=== PATIENT | female | born 1955 | race Caucasian/White ===

== ENCOUNTER 2020-07-02 18:46 | Observation (INO) | payer MEDICARE, OTHER ==
--- NOTE | 2020-07-02 19:18 | ED Physician Documentation ---
PD HPI CHEST PAIN - Stated complaint Stated Complaint: IRREGULAR HEART BEAT - Chief complaint Chief Complaint: Cardiac - History obtained from History obtained from: Patient - Additional information Additional information: 64-year-old woman with history of remote breast cancer in remission after chemo. She has had an intermittent problem in the past where she gets a fast heartbeat, feels somewhat fatigued and hyper aware of her chest. Is not painful. She had this several years ago and had a work-up including what sounds like a gated CT, echo, stress test and they were all negative. She has been fine for a few years until April. Had it for a day in April, then was okay up until a few nights ago. Had a similar episode for several hours. Now has been back in it for about an hour. She does drink coffee but not in the evenings. No change in her recent caffeine intake. No other stimulants. She is on no meds. No history of DVT or PE. No calf pain or pedal edema. She has had urinary frequency today. Review of Systems Ten Systems: 10 systems reviewed and negative Constitutional: reports: Reviewed and negative Cardiac: reports: Palpitations, Reviewed and negative Respiratory: denies: Dyspnea, Cough PD PAST MEDICAL HISTORY - Past Medical History Past Medical History: No - Past Surgical History Past Surgical History: No - Present Medications Home Medications: Ambulatory Orders Medication Instructions Recorded Confirmed No Known Home Medications 07/02/20 07/02/20 - Allergies Allergies/Adverse Reactions: Allergies Allergy/AdvReac Type Severity Reaction Status Date / Time No Known Drug Allergies Allergy Verified 07/02/20 18:55 - Social History Does the pt smoke?: No Smoking Status: Never smoker Does the pt drink ETOH?: Yes Does the pt have substance abuse?: No - Immunizations Immunizations are current?: Yes - POLST Patient has POLST: No PD ED PE NORMAL - Vitals Vital signs reviewed: Yes - General General: Alert and oriented X 3, No acute distress - HEENT HEENT: PERRL, EOMI - Neck Neck: Supple, no meningeal sign, No bony TTP - Cardiac Cardiac: No murmur, Other (Rapid, regular, no murmur) - Respiratory Respiratory: No respiratory distress, Clear bilaterally - Abdomen Abdomen: Non tender - Extremities Extremities: No edema, No calf tenderness / cord - Neuro Neuro: Alert and oriented X 3, Normal speech Results - Vitals Vitals: Vital Signs - 24 hr 07/02/20 07/02/20 07/02/20 18:55 19:00 19:30 Temperature 37.2 C 37.2 C Heart Rate 120 H 120 H 111 H Respiratory 17 17 16 Rate Blood Pressure 188/89 H 188/89 H 187/98 H O2 Saturation 100 100 98 07/02/20 07/02/20 07/02/20 20:00 20:30 21:00 Temperature 36.6 C Heart Rate 84 84 79 Respiratory 14 16 13 Rate Blood Pressure 200/96 H 175/86 H 170/80 H O2 Saturation 100 99 98 07/02/20 21:30 Temperature Heart Rate 77 Respiratory 12 Rate Blood Pressure 169/86 H O2 Saturation 97 Oxygen O2 Source Room air - EKG (time done) 1852 Rate: Rate (enter#) (121) Rhythm: Sinus tachycardia [place]: Normal Intervals: Normal DE QRS: Normal Ischemia: Non specific changes (Borderline lateral ST depression) Computer interpretation: Agree with computer - Labs Labs: Laboratory Tests 07/02/20 07/02/20 07/02/20 19:20 19:35 19:35 WBC 7.6 RBC 4.57 Hgb 14.1 Hct 41.3 MCV 90.4 MCH 30.9 MCHC 34.1 RDW 13.0 Plt Count 257 MPV 9.5 Neut # (Auto) 4.9 Lymph # (Auto) 2.1 Mckean # (Auto) 0.5 Eos # (Auto) 0.1 Baso # (Auto) 0.0 Absolute Nucleated RBC 0.00 Nucleated RBC % 0.0 D-Dimer 230.8 Sodium Potassium Chloride Carbon Dioxide Anion Gap BUN Creatinine Estimated GFR (MDRD) Glucose Calcium Total Bilirubin AST ALT Alkaline Phosphatase Troponin I High Sens Total Protein Albumin Globulin Albumin/Globulin Ratio Lipase TSH Urine Color YELLOW Urine Clarity CLEAR Urine pH 6.5 Ur Specific [place] 1.010 Urine Protein NEGATIVE Urine Glucose (UA) NEGATIVE Urine Ketones NEGATIVE Urine Occult Blood TRACE-INTA Urine Nitrite NEGATIVE Urine Bilirubin NEGATIVE Urine Urobilinogen 0.2 (NORMAL) Ur Leukocyte Esterase SMALL H Urine RBC 0-5 Urine WBC 6-10 H Ur Squamous Epith Cells MOD Squamous H Urine Bacteria None Seen Ur Microscopic Review INDICATED Urine Culture Comments NOT INDICATED 07/02/20 07/02/20 07/02/20 19:35 19:35 19:35 WBC RBC Hgb Hct MCV MCH MCHC RDW Plt Count MPV Neut # (Auto) Lymph # (Auto) Mcke[place] # (Auto) Eos # (Auto) Baso # (Auto) Absolute Nucleated RBC Nucleated RBC % D-Dimer Sodium 141 Potassium 3.2 L Chloride 99 L Carbon Dioxide 28 Anion Gap 14.0 H BUN 20 Creatinine 1.3 H Estimated GFR (MDRD) 41 L Glucose 128 H Calcium 9.8 Total Bilirubin 0.4 AST 39 ALT 31 Alkaline Phosphatase 64 Troponin I High Sens 15.5 H* Total Protein 8.4 H Albumin 5.1 Globulin 3.3 Albumin/Globulin Ratio 1.5 Lipase 45 TSH 3.88 Urine Color Urine Clarity Urine pH Ur Specific [place] Urine Protein Urine Glucose (UA) Urine Ketones Urine Occult Blood Urine Nitrite Urine Bilirubin Urine Urobilinogen Ur Leukocyte Esterase Urine RBC Urine WBC Ur Squamous Epith Cells Urine Bacteria Ur Microscopic Review Urine Culture Comments 07/02/20 21:15 WBC RBC Hgb Hct MCV MCH MCHC RDW Plt Count MPV Neut # (Auto) Lymph # (Auto) [place]ke[place] # (Auto) Eos # (Auto) Baso # (Auto) Absolute Nucleated RBC Nucleated RBC % D-Dimer Sodium Potassium Chloride Carbon Dioxide Anion Gap BUN Creatinine Estimated GFR (MDRD) Glucose Calcium Total Bilirubin AST ALT Alkaline Phosphatase Troponin I High Sens 22.6 H* Total Protein Albumin Globulin Albumin/Globulin Ratio Lipase TSH Urine Color Urine Clarity Urine pH Ur Specific [place] Urine Protein Urine Glucose (UA) Urine Ketones Urine Occult Blood Urine Nitrite Urine Bilirubin Urine Urobilinogen Ur Leukocyte Esterase Urine RBC Urine WBC Ur Squamous Epith Cells Urine Bacteria Ur Microscopic Review Urine Culture Comments PD MEDICAL DECISION MAKING - ED course ED course: 64-year-old woman presents with palpitations and chest discomfort. On the monitor she is in a sinus tachycardia with frequent PACs but not overt atrial fibrillation. She was administered some IV metoprolol with resolution of her symptoms. Her initial troponin was 15.5 which is just above the higher limit of low normal at 14.9. Serial troponin was done at around the 2-hour adam which was somewhat higher. About 7.1 points higher. This could be significant, but I do not think at this point would be diagnostic of an ACS. She was given oral metoprolol at that point and aspirin and Dr. Manning will observe. Departure - Departure Disposition: ED Place in Observation Clinical Impression: Sinus tachycardia, Elevated troponin Chest pain Qualifiers: Chest pain type: unspecified Qualified Code(s): R07.9 - Chest pain, unspecified Condition: Stable
[2020-07-02 19:34] LABS: BILIRUBIN,URINE NEGATIVE (NEGATIVE); GLUCOSE, URINE (UA) NEGATIVE (NEGATIVE); KETONES,URINE (UA) NEGATIVE (NEGATIVE); LEUKOCYTE ESTERASE, URINE SMALL (NEGATIVE); NITRITE,URINE NEGATIVE (NEGATIVE); OCCULT BLOOD,URINE TRACE-INTA (NEGATIVE); PH,URINE 6.5 PH (5.0-7.5); PROTEIN,URINE NEGATIVE (NEGATIVE); UROBILINOGEN,URINE 0.2 (NORMAL) E.U./dL (NORMAL)
[2020-07-02 19:35] LABS: CLARITY,URINE CLEAR (CLEAR)
[2020-07-02 19:41] LABS: BACTERIA,URINE None Seen /HPF (None Seen); RBC,URINE 0-5 /HPF (0-5); SQUAMOUS EPITHELIAL CELL,UR MOD Squamous (<= Few)
--- NOTE | 2020-07-02 19:41 | XRAY Report ---
PROCEDURE: Chest 1 View X-Ray INDICATIONS: Chest Pain TECHNIQUE: One view of the chest was acquired. COMPARISON: None. FINDINGS: Surgical changes and devices: Surgical clips are noted in the right breast and right axilla.. Lungs and pleura: No pleural effusions or pneumothorax. Lungs are clear. Mediastinum: Mediastinal contours appear normal. Heart size is normal. Bones and chest wall: No suspicious bony lesions. Overlying soft tissues appear unremarkable. IMPRESSION: No acute cardiopulmonary abnormality. Reviewed by: Guerrero Ramsey MD on 07/02/2020 7:40 PM PDT Approved by: Guerrero Ramsey MD on 07/02/2020 7:40 PM PDT Station ID: [id number]
[2020-07-02 19:43] LABS: BASOPHILS % (AUTO) 0.5 %; EOSINOPHILS # (AUTO) 0.1 10^3/uL (0.0-0.7); EOSINOPHILS % (AUTO) 0.7 %; HGB - HEMOGLOBIN 14.1 g/dL (12.0-16.0); LYMPHOCYTES # (AUTO) 2.1 10^3/uL (1.5-3.5); LYMPHOCYTES % (AUTO) 27.8 %; MEAN CORPUSCULAR HEMOGLOBIN 30.9 pg (27.0-31.0); MEAN CORPUSCULAR HGB CONC 34.1 g/dL (32.0-36.0); MEAN CORPUSCULAR VOLUME 90.4 fL (81.0-99.0); MEAN PLATELET VOLUME 9.5 fL (7.9-10.8); MONOCYTES # (AUTO) 0.5 10^3/uL (0.0-1.0); MONOCYTES % (AUTO) 6.2 %; NEUTROPHILS # (AUTO) 4.9 10^3/uL (1.5-6.6); NEUTROPHILS % (AUTO) 64.4 %; PLT - PLATELET COUNT 257 10^3/uL (130-450); RED BLOOD COUNT 4.57 10^6/uL (4.20-5.40); WHITE BLOOD COUNT 7.6 x10^3/uL (4.8-10.8)
[2020-07-02] MEDS ORDERED: METOPROLOL 5 MG/5 ML VIAL IVP STA (19:49)
[2020-07-02 19:53] LABS: ALBUMIN 5.1 g/dL (3.2-5.5); ALBUMIN/GLOBULIN RATIO 1.5 (1.0-2.2); BILIRUBIN,TOTAL 0.4 mg/dL (0.2-1.0); CALCIUM 9.8 mg/dL (8.5-10.3); CREATININE 1.3 mg/dL (0.4-1.0); TOTAL PROTEIN 8.4 g/dL (6.7-8.2)
[2020-07-02] MEDS ORDERED: ASPIRIN CHEW 81 MG TABLET PO STA (21:57)
[2020-07-02] MEDS ORDERED: METOPROLOL TARTRATE 50 MG TABLET PO STA (22:01)
[2020-07-02] MEDS ORDERED: SODIUM CHLORIDE FLUSH 0.9% 10 ML SYRINGE IVP PRN (22:02)
[2020-07-02] MEDS ORDERED: ONDANSETRON ODT 4 MG TABLET TL PRN (22:02)
[2020-07-02] MEDS ORDERED: oxyCODONE 5 MG TABLET PO PRN (22:02)
[2020-07-02] MEDS ORDERED: ONDANSETRON 4 MG/2 ML VIAL IVP PRN (22:02)
[2020-07-02] MEDS ORDERED: ACETAMINOPHEN 325 MG TABLET PO PRN (22:02)
--- NOTE | 2020-07-02 22:28 | HISTORY & PHYSICAL EXAMINATION ---
Chief Complaint - Chief Complaint Chief Complaint: fast heart rate and full chest for weeks off and on History of Present Illness - Admitted From Admitted From:: Home/ER - History Obtained From Records Reviewed: [facility] History obtained from: Dr. Prince Exam Limitations: none - History of Present Illness HPI Comment/Other: This patient's risk factor for coronary artery disease include age. But she does not smoke, nor does she have high blood pressure, diabetes, hyperlipidemia. She has had chemotherapy and radiation therapy for breast cancer. In the past she did have a work-up for syncope where she describes having a stress test, and Echo, and a Holter monitor. That was negative.This was about 4 years ago. The echocardiogram made sure that she did not have toxicity from her chemotherapy.Symptoms at that point consisted of near syncope. 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 While at work, her heart rate got very slow. She could hear the voices of people getting farther and farther away. Her friends around her described was getting very white, covered in sweat, and eyes almost rolling in the back of her head. In the end, her doctor told her that she had "nearly fainted" but they found nothing else.They did give her a blood pressure pill for "high blood pressure" back then. But she has whitecoat coat hypertension. Although it did was make her orthostatic and dizzy with the pills. So she stopped them.Since moving to [facility] a year and a half ago, she has not establish yourself with a primary care provider. She had an episode of chest pain or chest fullness 2 months ago. But she was getting ready for her son's wedding, and had too much to do, "I do not have time for this" and ignored it. The chest fullness is described as a turning over in her chest. Accompanied by uncomfortable fullness. It lasts a few seconds to few minutes. Then 2 days ago. And now. There is no nausea, diaphoresis. There is no radiation down the arm or up the jaw. There is a sensation of chest sudden fullness and fast heart rate. Dr. Prince saw the patient where she had tachycardia 120. It is sinus with PACs. Blood pressure 188/89. Temperature 37 2 respiration 17. 100% on room air. D-dimer was 230. Initial troponin was 15.5. He repeated it and it was 22.6. Patient will now be placed in observation for rule out [facility] Because of the increase in troponin. She is now symptom-free. Other than her dose of metoprolol 5 mg IV push once, metoprolol 25 mg po and 1 chewable aspirin, the patient has not required any further treatment. 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 She had diabetes, hypertension, and in the middle of a PTCA attempt for an [facility]. Dad is 91 and healthy. 1 brother and 2 sisters. Brother is healthy. Sisters have gout, musculoskeletal problems, possible mental health issues. 2 sons are completely healthy. Living arrangement: At home Living Situation: With friend(s) Social History Notes: She is from [place] [facility]. She has a son there, and a son who lives here in [place] [facility] [place]. She came up to be with her son here in [place] [facility] [place]. Over the years she is come to visit him and came to fall in love with [place]. She had the opportunity to move into a room of a friend who moved up here. She is renting right now. Plan is for her to move up to [place]. She is . Employed "here and there" but mainly was [employer]. She never smoked. Rarely drank. 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 But she lets me know that both sons can speak for her. - Substance History Use: Uses substance without health or social issues: NONE Abuse: Recurrent use of substance despite neg consequences: NONE Dependence: Experiences withdrawal or developed tolerances: NONE - POLST Patient has POLST: No POLST Status: Full Code Meds/Allgy - Home Medications Home Medications: Ambulatory Orders Medication Instructions Recorded Confirmed No Known Home Medications 07/02/20 07/02/20 - Allergies Allergies/Adverse Reactions: Allergies Allergy/AdvReac Type Severity Reaction Status Date / Time No Known Drug Allergies Allergy Verified 07/02/20 18:55 Review of Systems - Constitutional Constitutional: denies: Fatigue, Fever, Weakness, Poor appetite, Weight gain, Weight loss - Eyes Eyes: denies: Pain, Blurred vision, Field loss - Ears, Nose & Throat Ears, Nose & Throat: denies: Hearing loss, Vertigo, Nasal discharge, Nasal congestion, Sore throat, Hoarseness - Cardiovascular Cariovascular: reports: Irregular heart rate, Palpitations, Lightheadedness. denies: Edema, Syncope, Exertional dyspnea, Decr. exercise tolerance - Respiratory Respiratory: denies: Cough, Sputum production, Wheezing, Snoring, Orthopnea, SOB at rest, SOB with exertion - Gastrointestinal Gastrointestinal: denies: Abdominal pain, Abdominal distention, Constipation, Diarrhea, Change in bowel habits - Genitourinary Genitourinary: denies: Dysuria, Frequency, Urgency, Incontinence, Flank pain - Musculoskeletal Musculoskeletal: denies: Muscle pain, Back pain, Muscle aches, Gout, Joint pain - Integumentary Integumentary: denies: Rash, Lesions - Neurological Neurological: denies: General weakness, Headache, Dizziness, Numbness, Memory problems, Pre-existing deficit, Seizures - Psychiatric Psychiatric: reports: Anxiety. denies: Depression, Suicidal - Endocrine Endocrine: denies: Polyuria, Polydypsia, Polyphagia - Hematologic/Lymphatic Hematologic/Lymphatic: denies: Anemia, Bruising, Petechiae Prior Level of Functionality: Completely independent with activities of daily living. 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 Exam - Vital Signs Reviewed Vital Signs: Yes Vital Signs: Vital Signs x48h Temp Pulse Resp BP Pulse Ox 07/02/20 22:00 36.6 C 78 16 184/90 H 99 07/02/20 21:30 77 12 169/86 H 97 07/02/20 21:00 36.6 C 79 13 170/80 H 98 07/02/20 20:30 84 16 175/86 H 99 07/02/20 20:00 84 14 200/96 H 100 07/02/20 19:30 111 H 16 187/98 H 98 07/02/20 19:00 37.2 C 120 H 17 188/89 H 100 07/02/20 18:55 37.2 C 120 H 17 188/89 H 100 - Physical Exam General Appearance: positive: No acute distress, Alert, Other (Thin, well- nourished well-developed female who looks stated age, son accompanies her and is at the bedside. She gives me permission to talk to her and examine her in front of him.) Eyes Bilateral: positive: PERRL, EOMI ENT: positive: Pharynx nml Neck: positive: No JVD. negative: Stiff neck Respiratory: positive: No respiratory distress. negative: Wheezes, Rales, Rhonchi Cardiovascular: positive: Regular rate & rhythm (Many ectopic beats.). negative: Gallop/S4, Friction rub Peripheral Pulses: positive: 1+ Abdomen: positive: Non-tender, No organomegaly, Nml bowel sounds, No distention Skin: positive: Warm, Dry. negative: Diaphoresis Extremities: positive: Non-tender, Full ROM, No pedal edema Neurologic/Psychiatric: positive: Oriented x3, CN's nml (2-12), Motor nml Conclusion/Plan - Problem List (1) Chest discomfort Conclusion/Plan: At low risk for coronary artery disease nevertheless there is a bump in her troponin. This may be just due to the tachycardia. D-dimer is low enough that we are not can be doing CT pulmonary angiogram. Plan: Observation status 2 more sets of cardiac enzymes See if we can find her old records for previous work-up She will need to establish yourself with a primary care provider in the outpatient setting (2) Sinus tachycardia Conclusion/Plan: diferential: PE thought of but with low DDimer no CTA Incipient SVT or afib will need cardiology EP eval as outpatient Angina being evaluated with this observation Panic disorder will be diagnosis based on exclusion of other causes Hyperthyroid status ruled out w nml TSH. On no meds such as sudafed. Will check urine tox screen. (3) Hypokalemia Conclusion/Plan: On no medications to cause hypokalemia. Plan is to check Magnesium as well, supplement p.o. Recheck again in the morning. (4) Kidney disease Conclusion/Plan: Creatinine is 1.3. Unclear if this is old or new in this patient. Other than IV fluids for hydration, 1 L, will assess again in the morning. She will need outpatient follow-up with her PCP. This may be an old finding. - Lab Results Lab results reviewed: Yes Fish Bones: 07/02/20 19:35 07/02/20 19:35 - Diagnostic Imaging Results Diagnostic Imaging Results: positive: Final report reviewed Diagnostic Imaging Results Comments: No acute cardiopulmonary abnormality on chest x-ray. - EKG Results EKG Interpreted Independently: No EKG Comparison: No prior EKG EKG Findings: EKG with sinus tachycardia. Borderline ST depression in the anterolateral leads, nondiagnostic. Core Measures - Anticipated LOS I expect patient to be DC'd or transferred within 96 hours.: Yes - DVT/VTE - Prophylaxis VTE/DVT Device ordered at admit?: Yes
[2020-07-02] MEDS: POTASSIUM CHLORIDE 20 MEQ TABLET PO SCH (23:04)
[2020-07-03] MEDS: SODIUM CHLORIDE FLUSH 0.9% 10 ML SYRINGE IVP SCH ×2 (00:11→08:03)
[2020-07-03] MEDS ORDERED: ATORVASTATIN 40 MG TABLET PO SCH ×2 (00:23→21:00)
[2020-07-03 01:32] LABS: AMPHETAMINE SCREEN,URINE NEGATIVE (NEGATIVE); BENZODIAZEPINES SCREEN, URINE NEGATIVE (NEGATIVE); COCAINE SCREEN URINE NEGATIVE (NEGATIVE); METHADONE SCREEN, URINE NEGATIVE (NEGATIVE); METHAMPHETAMINES SCREEN, URINE NEGATIVE (NEGATIVE); MUDS CUTOFF CONCENTRATIONS CUTOFF CONC BELOW:; OPIATE SCREEN, URINE NEGATIVE (NEGATIVE); OXYCODONE SCREEN, URINE NEGATIVE (NEGATIVE); PROPOXYPHENE SCREEN, URINE NEGATIVE (NEGATIVE); TRICYCLIC ANTIDEPRESSANT,URINE NEGATIVE (NEGATIVE)
[2020-07-03 05:37] LABS: CALCIUM 9.4 mg/dL (8.5-10.3); CREATININE 0.8 mg/dL (0.4-1.0)
[2020-07-03] MEDS: POTASSIUM CHLORIDE 20 MEQ TABLET PO SCH (08:02)
[2020-07-03] MEDS ORDERED: ENOXAPARIN 40 MG/0.4 ML SYRINGE SUBQ SCH (09:00)
[2020-07-03 13:02] LABS: CHOL/HDL RATIO 3.5 (<4.4); CHOLESTEROL 240 mg/dL; HDL CHOLESTEROL 68 mg/dL; LDL CHOLESTEROL,CALCULATED 157 mg/dL; LDL/HDL RATIO 2.3 (<4.4); VLDL CHOLESTEROL 15 mg/dL
--- NOTE | 2020-07-03 13:20 | CARDIAC PROCEDURE NOTE ---
DATE OF SERVICE: 07/03/2020 Physician: Ivana Metz MD INDICATIONS: Chest pain. CARDIAC RISK FACTORS: Family history of heart disease, untreated hypertension. DESCRIPTION OF PROCEDURE: After signing informed consent, patient underwent a Real-protocol treadmill stress test with nuclear myocardial perfusion imaging. RESTING HEART RATE: 80. PEAK HEART RATE: 138 (89% predicted maximum heart rate for age). RESTING BLOOD PRESSURE: 165/97. PEAK BLOOD PRESSURE: 214/94. Patient exercised for 4 minutes and 30 seconds on a Real-protocol treadmill stress test. She achieved a peak heart rate of 138 (89% PMHR) and 6.4 METS. Patient had no shortness of breath and oxygen saturation was 94-98% on room air throughout the test. Patient had no chest pain and had no "palpitations." She reported her perceived exertion at 15/20 on the Courtney scale at peak. RESTING EKG: Normal sinus rhythm, vertical axis, borderline prolonged QT interval. EKG AT PEAK: Right axis deviation develops. No ischemic ST segment or T-wave changes occur. SUMMARY 1. Abnormal resting EKG and a new right axis deviation occurs with exercise. Consider pulmonary disease, therefore. 2. No ischemic changes occur by EKG criteria on this Real-protocol treadmill stress test. 3. Fair exercise tolerance. 4. Nuclear images reported separately. 5. This patient's cardiac risk based on all the above: Low-Moderate. TD: 07/03/2020 12:41 MTDD
--- NOTE | 2020-07-03 14:55 | Nuclear Medicine Report ---
PROCEDURE: Rest and exercise myocardial perfusion SPECT with gated imaging and ejection fraction INDICATIONS: Chest pain. RADIOPHARMACEUTICAL: 8.0 mCi Tc-99m Myoview IV at rest and 24.8 mCi Tc-99m Myoview IV at peak exerci se. [id number] was performed. TECHNIQUE: Radiopharmaceutical was injected at peak stress test, and also at rest. SPECT images wer e obtained. SPECT myocardial perfusion images were displayed in short axis, horizontal long axis, an d vertical long axis views. Gated images were reviewed using [employer] software. COMPARISON: None available. CARDIAC STRESS: A standard Real treadmill exercise tolerance test was performed by the patient under the supervision of an attending staff. The patient exercised for 4 minutes and 29 seconds; functional aerobic impai rment (FLACO) is 25.9%. Hemodynamic data: There is normal blood pressure and heart rate response to exercise stress. Jyotien t achieved 89% of maximum predicted heart rate at peak exercise. Symptoms: Patient denied chest pain during exercise. EKG: No diagnostic EKG changes of ischemia; no ectopy. FINDINGS: Raw data: There is good myocardial labeling by radiotracer. No significant motion artifacts. Lung- to-heart ratio is 0.23 (normal is less than 0.38 for tetrafosmin tracer). Left ventricle function: Gated images demonstrate normal left ventricle wall thickening. No segment al wall motion abnormality. No transient ischemic dilation; TID is 1.15 (normal less than 1.3). The left ventricle resting end-diastolic volume is 59 mL. Left ventricle stress ejection fraction is 86 %; normal values are above 45%. Myocardial perfusion: There is normal distribution of activity in the left and right ventricular enriqueta cardium. Anteroapical mid-distal wall soft tissue attenuation artifact which normalizes with prior im ages. Elsewhere, no convincing fixed or reversible perfusion defects. IMPRESSION: Overall, no definite reversible perfusion defect to suggest acute ischemia. Soft tissue attenuation artifact involving the mid-distal anteroapical wall. Normal left ventricular ejection fraction Decreased exercise capacity PQRS ATTESTATIONS: Measure 322 - Is this imaging test primarily performed on a low-risk surgery patient for preoperative evaluation within 30 days preceding their low-risk non-cardiac surgery? Low-risk surgery is defined as cardiac or myocardial infarction less than 1%, including (but not limited to) endoscopic pr ocedures, superficial procedures, cataract surgery, and excisional breast surgery: Answer: No Measure 323 - Is this imaging test performed primarily for the monitoring of an asymptomatic patient who had percutaneous coronary intervention on the visit date or within 2 years of the visit date? An swer: No Measure 324 - Is this imaging test performed primarily for the initial detection and risk assessment on an asymptomatic, low coronary heart disease patient? Low CHD risk definition = clinicians should consider the maximum number of available patient factors used to estimate risk based on [place] (A TP III criteria), typically age, gender, diabetes, smoking status, and use of blood pressure medicati on, and integrate age appropriate estimates for missing elements, such as LDL or standard blood press ure. Answer: No Reviewed by: Jasper Dempsey MD on 07/03/2020 2:54 PM PDT Approved by: Jasper Dempsey MD on 07/03/2020 2:54 PM PDT Station ID: [id number]
--- NOTE | 2020-07-03 15:13 | Discharge Plan ---
Discharge Plan Problem Reviewed?: Yes Disposition: Home, Self Care Condition: Stable Prescriptions: Metoprolol Tartrate [Lopressor] 25 mg PO BID #60 tablet Diet: Low Sodium Activity Restrictions: Activity as Tolerated Shower Restrictions: No Health Concerns: You were seen in the hospital because of palpitations and chest discomfort. Your heart numbers were slightly elevated and so you had a stress test completed which did not suggest heart disease. Your symptoms have resolved after being started on metoprolol. Plan of Treatment: Please continue to take metoprolol 25 mg twice daily. Your cholesterol is elevated and your risk for cardiovascular disease is intermediate. As we discussed, it is reasonable to start you on medication for this or to hold off and have this rechecked in the future and for the time being, you prefer to follow-up with a primary care provider to discuss starting a cholesterol medication and so we will not discharge you with one. Please do follow-up with a primary care provider to make sure your blood pressure is stable and to have your cholesterol checked again in the future. Care Goals: Please return to the emergency department if you develop any chest pain, palpitations, shortness of breath. Assessment: Patient expressed understanding of the treatment plan. Additional Instructions or Follow Up instructions: Please make appointment with a primary care provider in 1 to 2 weeks. No Smoking: If you smoke, Please STOP! Call for help.
--- NOTE | 2020-07-03 15:13 | DISCHARGE SUMMARY ---
Discharge Summary Admit Date: 07/02/20 Discharge Date: 07/03/20 Discharging Provider: Jed Peter Primary Care Provider: Nubia PCP Code Status: Attempt Resuscitation Condition at Discharge: Stable Discharge Disposition: 01 Home, Self Care - DIAGNOSES Admission Diagnoses: Chest discomfort Sinus tachycardia Hypokalemia Kidney disease Discharge Diagnoses with Status of Each Condition: Chest pain - resolved. Palpitations - resolved. Hyperlipidemia - stable. Hypertension - stable. - HPI History of Present Illness: H&P per Dr. Manning: This patient's risk factor for coronary artery disease include age. But she does not smoke, nor does she have high blood pressure, diabetes, hyperlipidemia. She has had chemotherapy and radiation therapy for breast cancer. In the past she did have a work-up for syncope where she describes having a stress test, and Echo, and a Holter monitor. That was negative.This was about 4 years ago. The echocardiogram made sure that she did not have toxicity from her chemotherapy.Symptoms at that point consisted of near syncope. 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 While at work, her heart rate got very slow. She could hear the voices of people getting farther and farther away. Her friends around her described was getting very white, covered in sweat, and eyes almost rolling in the back of her head. In the end, her doctor told her that she had "nearly fainted" but they found nothing else.They did give her a blood pressure pill for "high blood pressure" back then. But she has whitecoat coat hypertension. Although it did was make her orthostatic and dizzy with the pills. So she stopped them.Since moving to [facility] a year and a half ago, she has not establish yourself with a primary care provider. She had an episode of chest pain or chest fullness 2 months ago. But she was getting ready for her son's wedding, and had too much to do, "I do not have time for this" and ignored it. The chest fullness is described as a turning over in her chest. Accompanied by uncomfortable fullness. It lasts a few seconds to few minutes. Then 2 days ago. And now. There is no nausea, diaphoresis. There is no radiation down the arm or up the jaw. There is a sensation of chest sudden fullness and fast heart rate. Dr. Niki saw the patient where she had tachycardia 120. It is sinus with PACs. Blood pressure 188/89. Temperature 37 2 respiration 17. 100% on room air. D-dimer was 230. Initial troponin was 15.5. He repeated it and it was 22.6. Patient will now be placed in observation for rule out CA Because of the increase in troponin. She is now symptom-free. Other than her dose of metoprolol 5 mg IV push once, metoprolol 25 mg po and 1 chewable aspirin, the patient has not required any further treatment. - CONSULTS | PROCEDURES Procedures: She underwent a Real protocol treadmill stress test with nuclear myocardial perfusion imaging. This revealed abnormal resting EKG and a new right axis deviation that occurs with exercise. Consider pulmonary disease, therefore. No ischemic changes occurred by EKG criteria on this Real protocol treadmill stress test. Fair exercise tolerance. Nuclear images reported separately. This patient's cardiac risk based on all the above is low to moderate. Myocardial perfusion imaging revealed no definite reversible perfusion defect suggest acute ischemia. Soft tissue attenuation artifact involving the mid distal anterior apical wall. Normal left ventricular ejection fraction. Decreased exercise capacity. - HOSPITAL COURSE Hospital Course: She was admitted to the floor for chest discomfort and we trended her troponins. These continue to rise and peaked at 32 before trending down. Her D-dimer was within normal limits and so a CT angiogram was not obtained. The patient had no symptoms of chest pain or palpitations but given her elevated troponin, we obtained a stress test. This did not suggest any ischemia with exercise or based off of myocardial perfusion imaging. Her lipid panel did reveal an LDL of 157. After discussion with the patient, we discharged on metoprolol 25 mg twice daily as she felt that provide her the most relief when she was in the emergency department for her palpitations. She has been in a sinus rhythm while on telemetry here. We discussed the benefit of a statin given her LDL is elevated. Her ACSVD score is 7.4%. This puts her at the intermediate range. We discussed it is reasonable to treat this but also to monitor and have her follow-up on outpatient basis. She ultimately preferred to establish care with a primary care provider and to have a repeat lipid panel in the future before initiating treatment. We also discussed the use of aspirin. We discussed studies have not shown much benefit in primary prevention. She also prefer to hold off on aspirin for the time being. She will be discharged on just metoprolol 25 mg twice daily. She will be establishing care with a primary care provider and follow-up. - ALLERGIES Allergies/Adverse Reactions: Allergies Allergy/AdvReac Type Severity Reaction Status Date / Time No Known Drug Allergies Allergy Verified 07/02/20 18:55 - MEDICATIONS Home Medications: Ambulatory Orders Medication Instructions Recorded Confirmed Metoprolol Tartrate [Lopressor] 25 mg PO BID #60 tablet 07/03/20 - PHYSICAL EXAM AT DISCHARGE General Appearance: positive: No acute distress, Alert Eyes Bilateral: positive: Normal inspection, Conjunctivae nml ENT: positive: ENT inspection nml Neck: positive: Nml inspection Respiratory: positive: No respiratory distress. negative: Wheezes, Rales Cardiovascular: positive: Regular rate & rhythm, No murmur. negative: Tachycardia, Bradycardia, Systolic murmur Abdomen: positive: Non-tender, No distention. negative: Tenderness, Guarding, Rebound Skin: positive: No rash, Warm, Dry Extremities: positive: Full ROM, No pedal edema Neurologic/Psychiatric: positive: Oriented x3, Motor nml. negative: Disoriented to person, Disoriented to place, Disoriented to time Physical Exam Other/Comments: Vital Signs - 24 hr 07/02/20 07/02/20 07/02/20 18:55 19:00 19:30 Temperature 37.2 C 37.2 C Heart Rate 120 H 120 H 111 H Heart Rate [ Monitoring electrodes] Respiratory 17 17 16 Rate Blood Pressure 188/89 H 188/89 H 187/98 H Blood Pressure [Left Brachial artery] O2 Saturation 100 100 98 07/02/20 07/02/20 07/02/20 20:00 20:30 21:00 Temperature 36.6 C Heart Rate 84 84 79 Heart Rate [ Monitoring electrodes] Respiratory 14 16 13 Rate Blood Pressure 200/96 H 175/86 H 170/80 H Blood Pressure [Left Brachial artery] O2 Saturation 100 99 98 07/02/20 07/02/20 07/02/20 21:30 22:00 22:57 Temperature 36.6 C 37.1 C Heart Rate 77 78 Heart Rate [ 71 Monitoring electrodes] Respiratory 12 16 16 Rate Blood Pressure 169/86 H 184/90 H Blood Pressure 173/76 H [Left Brachial artery] O2 Saturation 97 99 97 07/03/20 07/03/20 07/03/20 00:14 05:19 08:17 Temperature 36.7 C 36.7 C 36.7 C Heart Rate Heart Rate [ 69 71 72 Monitoring electrodes] Respiratory 20 18 16 Rate Blood Pressure Blood Pressure 152/60 H 130/54 L 142/68 H [Left Brachial artery] O2 Saturation 97 96 96 07/03/20 07/03/20 13:00 15:38 Temperature 36.8 C 36.6 C Heart Rate Heart Rate [ 70 83 Monitoring electrodes] Respiratory 17 18 Rate Blood Pressure Blood Pressure 144/66 H 126/55 L [Left Brachial artery] O2 Saturation 97 98 - LABS Result Diagrams: 07/02/20 19:35 07/03/20 05:20 Other Lab Results: Laboratory Tests 07/02/20 07/02/20 07/02/20 19:20 19:35 19:35 WBC 7.6 RBC 4.57 Hgb 14.1 Hct 41.3 MCV 90.4 MCH 30.9 MCHC 34.1 RDW 13.0 Plt Count 257 MPV 9.5 Neut # (Auto) 4.9 Lymph # (Auto) 2.1 Burnett # (Auto) 0.5 Eos # (Auto) 0.1 Baso # (Auto) 0.0 Absolute Nucleated RBC 0.00 Nucleated RBC % 0.0 D-Dimer 230.8 Sodium Potassium Chloride Carbon Dioxide Anion Gap BUN Creatinine Estimated GFR (MDRD) Glucose Calcium Magnesium Total Bilirubin AST ALT Alkaline Phosphatase Troponin I High Sens Total Protein Albumin Globulin Albumin/Globulin Ratio Triglycerides Cholesterol LDL Cholesterol, Calc VLDL Cholesterol HDL Cholesterol LDL/HDL Ratio Cholesterol/HDL Ratio Lipase TSH Urine Color YELLOW Urine Clarity CLEAR Urine pH 6.5 Ur Specific [place] 1.010 Urine Protein NEGATIVE Urine Glucose (UA) NEGATIVE Urine Ketones NEGATIVE Urine Occult Blood TRACE-INTA Urine Nitrite NEGATIVE Urine Bilirubin NEGATIVE Urine Urobilinogen 0.2 (NORMAL) Ur Leukocyte Esterase SMALL H Urine RBC 0-5 Urine WBC 6-10 H Ur Squamous Epith Cells MOD Squamous H Urine Bacteria None Seen Ur Microscopic Review INDICATED Urine Culture Comments NOT INDICATED Urine Opiates Screen Ur Oxycodone Screen Urine Methadone Screen Ur Propoxyphene Screen Ur Barbiturates Screen Ur Tricyclics Screen Ur Phencyclidine Scrn Ur Amphetamine Screen U Methamphetamines Scrn U Benzodiazepines Scrn Urine Cocaine Screen U Cannabinoids Screen 07/02/20 07/02/20 07/02/20 19:35 19:35 19:35 WBC RBC Hgb Hct MCV MCH MCHC RDW Plt Count MPV Neut # (Auto) Lymph # (Auto) [place] # (Auto) Eos # (Auto) Baso # (Auto) Absolute Nucleated RBC Nucleated RBC % D-Dimer Sodium 141 Potassium 3.2 L Chloride 99 L Carbon Dioxide 28 Anion Gap 14.0 H BUN 20 Creatinine 1.3 H Estimated GFR (MDRD) 41 L Glucose 128 H Calcium 9.8 Magnesium Total Bilirubin 0.4 AST 39 ALT 31 Alkaline Phosphatase 64 Troponin I High Sens 15.5 H* Total Protein 8.4 H Albumin 5.1 Globulin 3.3 Albumin/Globulin Ratio 1.5 Triglycerides Cholesterol LDL Cholesterol, Calc VLDL Cholesterol HDL Cholesterol LDL/HDL Ratio Cholesterol/HDL Ratio Lipase 45 TSH 3.88 Urine Color Urine Clarity Urine pH Ur Specific [place] Urine Protein Urine Glucose (UA) Urine Ketones Urine Occult Blood Urine Nitrite Urine Bilirubin Urine Urobilinogen Ur Leukocyte Esterase Urine RBC Urine WBC Ur Squamous Epith Cells Urine Bacteria Ur Microscopic Review Urine Culture Comments Urine Opiates Screen Ur Oxycodone Screen Urine Methadone Screen Ur Propoxyphene Screen Ur Barbiturates Screen Ur Tricyclics Screen Ur Phencyclidine Scrn Ur Amphetamine Screen U Methamphetamines Scrn U Benzodiazepines Scrn Urine Cocaine Screen U Cannabinoids Screen 07/02/20 07/02/20 07/02/20 21:15 21:45 23:51 WBC RBC Hgb Hct MCV MCH MCHC RDW Plt Count MPV Neut # (Auto) Lymph # (Auto) [place] # (Auto) Eos # (Auto) Baso # (Auto) Absolute Nucleated RBC Nucleated RBC % D-Dimer Sodium Potassium Chloride Carbon Dioxide Anion Gap BUN Creatinine Estimated GFR (MDRD) Glucose Calcium Magnesium 2.3 Total Bilirubin AST ALT Alkaline Phosphatase Troponin I High Sens 22.6 H* 31.2 H* Total Protein Albumin Globulin Albumin/Globulin Ratio Triglycerides Cholesterol LDL Cholesterol, Calc VLDL Cholesterol HDL Cholesterol LDL/HDL Ratio Cholesterol/HDL Ratio Lipase TSH Urine Color Urine Clarity Urine pH Ur Specific [place] Urine Protein Urine Glucose (UA) Urine Ketones Urine Occult Blood Urine Nitrite Urine Bilirubin Urine Urobilinogen Ur Leukocyte Esterase Urine RBC Urine WBC Ur Squamous Epith Cells Urine Bacteria Ur Microscopic Review Urine Culture Comments Urine Opiates Screen Ur Oxycodone Screen Urine Methadone Screen Ur Propoxyphene Screen Ur Barbiturates Screen Ur Tricyclics Screen Ur Phencyclidine Scrn Ur Amphetamine Screen U Methamphetamines Scrn U Benzodiazepines Scrn Urine Cocaine Screen U Cannabinoids Screen 07/03/20 07/03/20 07/03/20 00:10 05:20 05:20 WBC RBC Hgb Hct MCV MCH MCHC RDW Plt Count MPV Neut # (Auto) Lymph # (Auto) [place] # (Auto) Eos # (Auto) Baso # (Auto) Absolute Nucleated RBC Nucleated RBC % D-Dimer Sodium 139 Potassium 3.6 Chloride 102 Carbon Dioxide 27 Anion Gap 10.0 BUN 18 Creatinine 0.8 Estimated GFR (MDRD) 72 L Glucose 99 Calcium 9.4 Magnesium Total Bilirubin AST ALT Alkaline Phosphatase Troponin I High Sens 31.9 H* Total Protein Albumin Globulin Albumin/Globulin Ratio Triglycerides Cholesterol LDL Cholesterol, Calc VLDL Cholesterol HDL Cholesterol LDL/HDL Ratio Cholesterol/HDL Ratio Lipase TSH Urine Color Urine Clarity Urine pH Ur Specific [place] Urine Protein Urine Glucose (UA) Urine Ketones Urine Occult Blood Urine Nitrite Urine Bilirubin Urine Urobilinogen Ur Leukocyte Esterase Urine RBC Urine WBC Ur Squamous Epith Cells Urine Bacteria Ur Microscopic Review Urine Culture Comments Urine Opiates Screen NEGATIVE Ur Oxycodone Screen NEGATIVE Urine Methadone Screen NEGATIVE Ur Propoxyphene Screen NEGATIVE Ur Barbiturates Screen NEGATIVE Ur Tricyclics Screen NEGATIVE Ur Phencyclidine Scrn NEGATIVE Ur Amphetamine Screen NEGATIVE U Methamphetamines Scrn NEGATIVE U Benzodiazepines Scrn NEGATIVE Urine Cocaine Screen NEGATIVE U Cannabinoids Screen NEGATIVE 07/03/20 12:43 WBC RBC Hgb Hct MCV MCH MCHC RDW Plt Count MPV Neut # (Auto) Lymph # (Auto) [place] # (Auto) Eos # (Auto) Baso # (Auto) Absolute Nucleated RBC Nucleated RBC % D-Dimer Sodium Potassium Chloride Carbon Dioxide Anion Gap BUN Creatinine Estimated GFR (MDRD) Glucose Calcium Magnesium Total Bilirubin AST ALT Alkaline Phosphatase Troponin I High Sens Total Protein Albumin Globulin Albumin/Globulin Ratio Triglycerides 73 Cholesterol 240 H LDL Cholesterol, Calc 157 H VLDL Cholesterol 15 HDL Cholesterol 68 LDL/HDL Ratio 2.3 Cholesterol/HDL Ratio 3.5 Lipase TSH Urine Color Urine Clarity Urine pH Ur Specific [place] Urine Protein Urine Glucose (UA) Urine Ketones Urine Occult Blood Urine Nitrite Urine Bilirubin Urine Urobilinogen Ur Leukocyte Esterase Urine RBC Urine WBC Ur Squamous Epith Cells Urine Bacteria Ur Microscopic Review Urine Culture Comments Urine Opiates Screen Ur Oxycodone Screen Urine Methadone Screen Ur Propoxyphene Screen Ur Barbiturates Screen Ur Tricyclics Screen Ur Phencyclidine Scrn Ur Amphetamine Screen U Methamphetamines Scrn U Benzodiazepines Scrn Urine Cocaine Screen U Cannabinoids Screen - DIAGNOSTIC IMAGING Diagnostic Imaging Results: Final report reviewed - FOLLOW UP Follow Up: She will be establishing care with a primary care provider in follow-up. It was recommended that she follow-up in 1 to 2 weeks. - TIME SPENT Time Spent in Discharge (Minutes): 31
[2020-07-03 15:39] VITALS: BP 126/55
[2020-07-03] MEDS ORDERED: METOPROLOL TARTRATE 25 MG TABLET PO SCH (21:00)
== END 2020-07-03 16:35 | disposition home or self-care (01) ==
LOC: ED 18:46 → MS3 22:02
PROVIDERS: ADMIT Specialist; ATTEND Internal Medicine
DX: R07.89 Other chest pain (principal); R00.2 Palpitations; E78.5 Hyperlipidemia, unspecified; I10 Essential (primary) hypertension; Z85.3 Personal history of malignant neoplasm of breast; Z92.21 Personal history of antineoplastic chemotherapy; R77.8 Other specified abnormalities of plasma proteins; R94.31 Abnormal electrocardiogram [ECG] [EKG]; Z92.3 Personal history of irradiation; R00.0 Tachycardia, unspecified; E87.6 Hypokalemia; N28.9 Disorder of kidney and ureter, unspecified
CPT/HCPCS: 36415; 71045; 78452; 80048; 80053; 80061; 80306; 81001; 83690; 83735; 84443; 84484; 85025; 85379; 93005; 93016; 93017; 93018; 96372; 96374; 99285; A9270; A9500; G0378; J1650; 81003; 83721; 87086

== ENCOUNTER 2020-10-03 09:09 | Outpatient (CLI) | payer MEDICARE, OTHER ==
[2020-10-03 14:54] LABS: BASOPHILS % (AUTO) 0.6 %; EOSINOPHILS % (AUTO) 0.8 %; HGB - HEMOGLOBIN 12.9 g/dL (12.0-16.0); LYMPHOCYTES # (AUTO) 1.4 10^3/uL (1.5-3.5); LYMPHOCYTES % (AUTO) 28.3 %; MEAN CORPUSCULAR HEMOGLOBIN 30.6 pg (27.0-31.0); MEAN CORPUSCULAR VOLUME 92.9 fL (81.0-99.0); MEAN PLATELET VOLUME 9.9 fL (7.9-10.8); MONOCYTES # (AUTO) 0.3 10^3/uL (0.0-1.0); MONOCYTES % (AUTO) 6.9 %; NEUTROPHILS # (AUTO) 3.1 10^3/uL (1.5-6.6); NEUTROPHILS % (AUTO) 63.2 %; PLT - PLATELET COUNT 257 10^3/uL (130-450); RED BLOOD COUNT 4.21 10^6/uL (4.20-5.40); WHITE BLOOD COUNT 4.9 x10^3/uL (4.8-10.8)
[2020-10-03 15:16] LABS: ALBUMIN 4.5 g/dL (3.2-5.5); ALBUMIN/GLOBULIN RATIO 1.6 (1.0-2.2); ALKALINE PHOSPHATASE 58 IU/L (42-121); ALT ALANINE AMINOTRANSFERASE 24 IU/L (10-60); AST ASPARTATE AMINOTRANSFERASE 28 IU/L (10-42); BILIRUBIN,TOTAL 0.9 mg/dL (0.2-1.0); BUN - BLOOD UREA NITROGEN 17 mg/dL (6-20); CALCIUM 9.5 mg/dL (8.5-10.3); CARBON DIOXIDE - CO2 30 mmol/L (21-32); CHLORIDE 100 mmol/L (101-111); CHOL/HDL RATIO 4.5 (<4.4); CHOLESTEROL 291 mg/dL; CREATININE 0.6 mg/dL (0.4-1.0); GLUCOSE 103 mg/dL (70-100); HDL CHOLESTEROL 64 mg/dL; LDL CHOLESTEROL,CALCULATED 207 mg/dL; LDL/HDL RATIO 3.2 (<4.4); TOTAL PROTEIN 7.4 g/dL (6.7-8.2); VLDL CHOLESTEROL 20 mg/dL
[2020-10-03 15:21] LABS: HEMOGLOBIN A1c% 5.1 % (4.27-6.07)
== END 2020-10-03 09:10 | disposition home or self-care (01) ==
LOC: LAB.S 09:09
PROVIDERS: ATTEND Physician Assistant
DX: R73.9 Hyperglycemia, unspecified (principal); I10 Essential (primary) hypertension; Z79.899 Other long term (current) drug therapy
CPT/HCPCS: 36415; 80053; 80061; 83036; 83721; 85025

== ENCOUNTER 2021-02-08 08:45 | Outpatient (CLI) | payer MEDICARE, OTHER ==
--- NOTE | 2021-02-11 09:50 | Mammography Report ---
BILATERAL DIGITAL SCREENING MAMMOGRAM 3D/2D: 02/08/2021 CLINICAL: Routine screening. Personal history of right breast cancer. Comparison is made to exams dated: 10/02/2016 mammogram, 08/22/2015 mammogram, 06/19/2014 mammogram, and 10/18/2013 mammogram - [facility]. There are scattered fibroglandular elements in both breasts. There are benign post operative findings in the right breast. No significant masses, calcifications, or other findings are seen in either breast. There has been no significant interval change. IMPRESSION: BENIGN There is no mammographic evidence of malignancy. A 1 year screening mammogram is recommended. This exam was interpreted at Station ID: [id number]. NOTE: For mammograms, a report in lay terms will be sent to the patient. Approximately 15% of breast malignancies will not be visualized mammographically. In the management of a palpable breast mass, a negative mammogram must not discourage biopsy of a clinically suspicious lesion. Electronically Signed By: Guerrero bernardo/cheo:02/08/2021 09:37:30 ACR BI-RADS Category 2: Benign Finding(s) 3342F PARENCHYMAL PATTERN: (A) - The breast(s) demonstrate(s) scattered fibroglandular densities. BI-RADS CATEGORY: (2) - 2 RECOMMENDATION: (ANNUAL) - Recommend routine annual screening mammography. [id number] 1 year screening LATERALITY: (B)
== END 2021-02-08 08:46 | disposition home or self-care (01) ==
LOC: DI 08:45
DX: Z12.31 Encounter for screening mammogram for malignant neoplasm of breast (principal); Z85.3 Personal history of malignant neoplasm of breast

== ENCOUNTER 2021-06-28 14:14 | Outpatient (CLI) | payer MEDICARE, OTHER ==
--- NOTE | 2021-06-28 16:06 | DEXA Report ---
PROCEDURE: Dexa Spine and/or Hip INDICATIONS: POST MENOPAUSAL TECHNIQUE: Dual energy x-ray absorptiometry (DXA) was performed on a [employer] System. Regions measur ed are the AP Spine, femoral neck, and if needed forearm. COMPARISON: None. FINDINGS: Lumbar Spine: Bone Mineral Density 1.302 g/cm/cm,T score 1.0, normal Left Femoral Neck: Bone Mineral Density 0.933 g/cm/cm, T score -0.8, normal (T score greater or equal to -1.0: NORMAL) (T score from -1.1 to -2.4: OSTEOPENIA) (T score less than or equal to -2.5 to: OSTEOPOROSIS) Impression: Normal bone mineral density as detailed above. Patients with diagnosis of osteoporosis or osteopenia should have regular bone mineral density assess ment. For those eligible for Medicare, routine testing is allowed once every 2 years. Testing frequ ency can be increased for patients who have rapidly progressing disease or for those who are receivin g medical therapy to restore bone mass. Reviewed by: Darian Alonzo MD on 06/28/2021 4:05 PM PDT Approved by: Darian Alonzo MD on 06/28/2021 4:05 PM PDT Station ID: [id number]
== END 2021-06-28 14:15 | disposition home or self-care (01) ==
LOC: DI 14:14
PROVIDERS: ATTEND Internal Medicine
DX: Z78.0 Asymptomatic menopausal state (principal)

== ENCOUNTER 2021-11-29 08:23 | Outpatient (CLI) | payer MEDICARE, OTHER ==
[2021-11-29 08:37] LABS: BASOPHILS % (AUTO) 0.7 %; EOSINOPHILS # (AUTO) 0.1 10^3/uL (0.0-0.7); EOSINOPHILS % (AUTO) 1.7 %; HCT - HEMATOCRIT 38.1 % (37.0-47.0); LYMPHOCYTES # (AUTO) 1.7 10^3/uL (1.5-3.5); LYMPHOCYTES % (AUTO) 30.7 %; MEAN CORPUSCULAR HEMOGLOBIN 30.9 pg (27.0-31.0); MEAN CORPUSCULAR HGB CONC 34.1 g/dL (32.0-36.0); MEAN CORPUSCULAR VOLUME 90.5 fL (81.0-99.0); MEAN PLATELET VOLUME 9.4 fL (7.9-10.8); MONOCYTES # (AUTO) 0.4 10^3/uL (0.0-1.0); MONOCYTES % (AUTO) 7.4 %; NEUTROPHILS # (AUTO) 3.2 10^3/uL (1.5-6.6); NEUTROPHILS % (AUTO) 59.3 %; PLT - PLATELET COUNT 224 10^3/uL (130-450); RED BLOOD COUNT 4.21 10^6/uL (4.20-5.40); WHITE BLOOD COUNT 5.4 x10^3/uL (4.8-10.8)
[2021-11-29 08:57] LABS: ALBUMIN 4.5 g/dL (3.2-5.5); ALBUMIN/GLOBULIN RATIO 1.6 (1.0-2.2); ALKALINE PHOSPHATASE 52 IU/L (42-121); ALT ALANINE AMINOTRANSFERASE 18 IU/L (10-60); AST ASPARTATE AMINOTRANSFERASE 23 IU/L (10-42); BILIRUBIN,TOTAL 0.4 mg/dL (0.2-1.0); BUN - BLOOD UREA NITROGEN 15 mg/dL (6-20); CALCIUM 9.3 mg/dL (8.5-10.3); CARBON DIOXIDE - CO2 28 mmol/L (21-32); CHLORIDE 101 mmol/L (101-111); CHOL/HDL RATIO 2.7 (<4.4); CHOLESTEROL 188 mg/dL; CREATININE 0.7 mg/dL (0.4-1.0); GFR - MDRD 83 (>89); GLUCOSE 100 mg/dL (70-100); HDL CHOLESTEROL 70 mg/dL; LDL CHOLESTEROL,CALCULATED 105 mg/dL; LDL/HDL RATIO 1.5 (<4.4); SODIUM 142 mmol/L (135-145); TOTAL PROTEIN 7.3 g/dL (6.7-8.2); TRIGLYCERIDES 65 mg/dL; VLDL CHOLESTEROL 13 mg/dL
[2021-11-29 09:08] LABS: THYROID STIMULATING HORMONE 2.77 uIU/mL (0.34-5.60)
== END 2021-11-29 08:24 | disposition home or self-care (01) ==
LOC: LAB 08:23
PROVIDERS: ATTEND Registered Nurse
DX: E78.5 Hyperlipidemia, unspecified (principal); R73.9 Hyperglycemia, unspecified; Z79.899 Other long term (current) drug therapy; I10 Essential (primary) hypertension; R00.0 Tachycardia, unspecified
CPT/HCPCS: 36415; 80053; 80061; 83721; 84443; 85025

== ENCOUNTER 2022-11-17 08:51 | Outpatient (CLI) | payer MEDICARE, OTHER ==
[2022-11-17 14:41] LABS: BASOPHILS % (AUTO) 0.8 %; EOSINOPHILS # (AUTO) 0.1 10^3/uL (0.0-0.7); EOSINOPHILS % (AUTO) 1.9 %; HCT - HEMATOCRIT 39.1 % (37.0-47.0); HGB - HEMOGLOBIN 12.5 g/dL (12.0-16.0); LYMPHOCYTES # (AUTO) 1.7 10^3/uL (1.5-3.5); LYMPHOCYTES % (AUTO) 33.4 %; MEAN CORPUSCULAR HEMOGLOBIN 29.8 pg (27.0-31.0); MEAN CORPUSCULAR VOLUME 93.3 fL (81.0-99.0); MEAN PLATELET VOLUME 10.1 fL (7.9-10.8); MONOCYTES # (AUTO) 0.4 10^3/uL (0.0-1.0); MONOCYTES % (AUTO) 7.2 %; NEUTROPHILS # (AUTO) 2.9 10^3/uL (1.5-6.6); NEUTROPHILS % (AUTO) 56.5 %; PLT - PLATELET COUNT 237 10^3/uL (130-450); RED BLOOD COUNT 4.19 10^6/uL (4.20-5.40); RED CELL DISTRIBUTION WIDTH 13.3 % (12.0-15.0); WHITE BLOOD COUNT 5.2 x10^3/uL (4.8-10.8)
[2022-11-17 15:10] LABS: BUN - BLOOD UREA NITROGEN 16 mg/dL (6-20); CALCIUM 9.4 mg/dL (8.5-10.3); CARBON DIOXIDE - CO2 31 mmol/L (21-32); CHLORIDE 105 mmol/L (101-111); CHOL/HDL RATIO 2.7 (<4.4); CHOLESTEROL 186 mg/dL; CREATININE 0.8 mg/dL (0.4-1.0); GFR - MDRD 71 (>89); GLUCOSE 97 mg/dL (70-100); HDL CHOLESTEROL 70 mg/dL; LDL CHOLESTEROL,CALCULATED 107 mg/dL; LDL/HDL RATIO 1.5 (<4.4); POTASSIUM 4.2 mmol/L (3.5-5.0); SODIUM 142 mmol/L (135-145); TRIGLYCERIDES 47 mg/dL; VLDL CHOLESTEROL 9 mg/dL
== END 2022-11-17 08:52 | disposition home or self-care (01) ==
LOC: LAB.S 08:51
PROVIDERS: ATTEND Internal Medicine Cardiovascular Disease
DX: I10 Essential (primary) hypertension (principal); E78.5 Hyperlipidemia, unspecified; R53.83 Other fatigue
CPT/HCPCS: 36415; 80048; 80061; 83721; 85025

== ENCOUNTER 2022-11-24 09:55 | Outpatient (CLI) | payer MEDICARE, OTHER ==
--- NOTE | 2022-11-25 12:44 | Mammography Report ---
BILATERAL DIGITAL SCREENING MAMMOGRAM 3D/2D: 11/24/2022 CLINICAL: Routine screening. Family history of breast cancer. Personal history of right breast cancer . Comparison is made to exams dated: 02/08/2021 mammogram, 10/02/2016 mammogram, 08/22/2015 mammogram, an d 06/19/2014 mammogram - [facility]. Both breasts are heterogeneously dense, which may obscure small masses (category c / 51-75% glandular tissue). There are benign post operative findings in the right breast. No significant masses, calcifications, or other findings are seen in either breast. There has been no significant interval change. IMPRESSION: BENIGN There is no mammographic evidence of malignancy. A 1 year screening mammogram is recommended. This exam was interpreted at Station ID: [id number]. NOTE: For mammograms, a report in lay terms will be sent to the patient. Approximately 15% of breast malignancies will not be visualized mammographically. In the management of a palpable breast mass, a negative mammogram must not discourage biopsy of a clinically suspicious lesion. Electronically Signed By: Kaiden Francois M.D. [facility] [place]11/24/2022 13:46:14 letter sent: No_Letter ACR BI-RADS Category 2: Benign Finding(s) 3342F PARENCHYMAL PATTERN: (D) - The breast(s) demonstrate(s) heterogeneously dense fibroglandular parenchy ma. BI-RADS CATEGORY: (2) - 2 Mammogram [id number] 1 year screening LATERALITY: (B)
== END 2022-11-24 09:56 | disposition home or self-care (01) ==
LOC: DI.S 09:55
DX: Z12.31 Encounter for screening mammogram for malignant neoplasm of breast (principal); Z85.3 Personal history of malignant neoplasm of breast; Z80.3 Family history of malignant neoplasm of breast